=== PATIENT | female | born 1975 | race African-American/Black ===

== ENCOUNTER 2022-10-05 07:44 | Outpatient (CLI) | payer OTHER ==
[2022-10-05] MEDS ORDERED: Iopamidol-370 76% 500 ML 1 ML ONE (11:31)
== END 2022-10-05 07:45 | disposition home or self-care (01) ==
LOC: CT 07:44
PROVIDERS: ATTEND Internal Medicine
DX: C34.11 Malignant neoplasm of upper lobe, right bronchus or lung (principal); I25.10 Atherosclerotic heart disease of native coronary artery without angina pectoris; K76.9 Liver disease, unspecified
CPT/HCPCS: 71260; Q9967